=== PATIENT | female | born 1995 | race African-American/Black ===

== ENCOUNTER 2019-06-09 10:25 | Observation (INO) | payer MEDICAID ==
[~2019-06-09] VITALS: Ht 154.9 cm; Wt 73.9 kg
[~2019-06-09 10:25] MED LIST: PRE NATAL
[2019-06-09] MEDS ORDERED: BETAMETHASONE ACET (6MG/ML) 5ML VIAL IM ONE (11:45)
[2019-06-10] MEDS ORDERED: NIF10C GT (14:06)
== END 2019-06-09 12:50 | disposition home or self-care (01) | DRG 861 ==
LOC: LDRP 10:25
PROVIDERS: ADMIT Specialist; ATTEND Specialist
DX: Z34.93 Encounter for supervision of normal pregnancy, unspecified, third trimester (principal); Z3A.30 30 weeks gestation of pregnancy
CPT/HCPCS: 59025; 81002; 96372; G0378; J0702

== ENCOUNTER 2019-06-10 13:00 | Observation (INO) | payer MEDICAID ==
[~2019-06-10] VITALS: Ht 154.9 cm; Wt 68.0 kg
[2019-06-10] MEDS ORDERED: BETAMETHASONE ACET (6MG/ML) 5ML VIAL IM ONE (13:45)
[2019-06-10] MEDS ORDERED: NIF10C GT (14:06)
== END 2019-06-10 14:25 | disposition home or self-care (01) | DRG 563 ==
LOC: LDRP 13:00
PROVIDERS: ADMIT Obstetrics & Gynecology; ATTEND Obstetrics & Gynecology
DX: O60.03 Preterm labor without delivery, third trimester (principal); Z3A.30 30 weeks gestation of pregnancy
CPT/HCPCS: 96372; G0378; J0702

== ENCOUNTER 2019-06-17 11:20 | Outpatient (CLI) | payer MEDICAID ==
[~2019-06-17 11:20] MED LIST changes: +NIF10C GT
== END 2019-06-17 12:15 | disposition home or self-care (01) ==
LOC: OB 11:20
PROVIDERS: ATTEND Specialist
DX: Z34.93 Encounter for supervision of normal pregnancy, unspecified, third trimester (principal); Z3A.31 31 weeks gestation of pregnancy
CPT/HCPCS: 59025; 81002

== ENCOUNTER 2019-06-21 11:43 | Observation (INO) | payer MEDICAID | END 2019-06-21 12:40 | disposition home or self-care (01) | DRG 563 | LOC: LDRP 11:43 | PROVIDERS: ADMIT Specialist; ATTEND Specialist | DX: O60.03 Preterm labor without delivery, third trimester (principal); Z3A.32 32 weeks gestation of pregnancy | CPT/HCPCS: 59025; 81002; G0378 ==

== ENCOUNTER 2019-06-28 12:15 | Observation (INO) | payer MEDICAID | END 2019-06-28 12:55 | disposition home or self-care (01) | DRG 563 | LOC: LDRP 12:15 | PROVIDERS: ADMIT Specialist; ATTEND Specialist | DX: O60.03 Preterm labor without delivery, third trimester (principal); Z3A.33 33 weeks gestation of pregnancy | CPT/HCPCS: 59025; 81002; G0378 ==

== ENCOUNTER 2019-07-03 20:55 | Observation (INO) | payer MEDICAID ==
[~2019-07-03] VITALS: Ht 152.4 cm; Wt 75.3 kg
[2019-07-03] MEDS ORDERED: TERBUTALINE SULFATE 1 MG/ML 1ML VIAL SC SCH (21:15)
[2019-07-03] MEDS ORDERED: ACETAMINOPHEN 325 MG TAB PO ONE (21:30)
== END 2019-07-03 23:15 | disposition home or self-care (01) | DRG 566 ==
LOC: LDRP 20:55
PROVIDERS: ADMIT Obstetrics & Gynecology; ATTEND Obstetrics & Gynecology
DX: O26.893 Other specified pregnancy related conditions, third trimester (principal); M54.9 Dorsalgia, unspecified; R10.2 Pelvic and perineal pain; O99.89 Other specified diseases and conditions complicating pregnancy, childbirth and the puerperium; Z3A.34 34 weeks gestation of pregnancy
CPT/HCPCS: 59025; 81002; 96372; G0378; J3105

== ENCOUNTER 2019-07-05 12:20 | Observation (INO) | payer MEDICAID | END 2019-07-05 13:27 | disposition home or self-care (01) | DRG 563 | LOC: LDRP 12:20 | PROVIDERS: ADMIT Specialist; ATTEND Specialist | DX: O60.03 Preterm labor without delivery, third trimester (principal); Z3A.34 34 weeks gestation of pregnancy | CPT/HCPCS: 59025; 81002; G0378 ==

== ENCOUNTER 2019-07-12 12:23 | Observation (INO) | payer MEDICAID | END 2019-07-12 14:40 | disposition home or self-care (01) | DRG 563 | LOC: LDRP 12:23 | PROVIDERS: ADMIT Specialist; ATTEND Specialist | DX: O60.03 Preterm labor without delivery, third trimester (principal); Z3A.35 35 weeks gestation of pregnancy | CPT/HCPCS: 59025; 81002; 84112; G0378 ==

== ENCOUNTER 2019-07-20 01:20 | Observation (INO) | payer MEDICAID ==
[~2019-07-20] VITALS: Ht 152.4 cm; Wt 75.7 kg
[2019-07-20] MEDS ORDERED: TERBUTALINE SULFATE 1 MG/ML 1ML VIAL SC ONE (02:15)
[2019-08-05] MEDS ORDERED: PREN27TA7 OR (17:03)
== END 2019-07-20 02:44 | disposition left against medical advice (07) | DRG 566 ==
LOC: LDRP 01:20
PROVIDERS: ADMIT Obstetrics & Gynecology; ATTEND Obstetrics & Gynecology
DX: O62.9 Abnormality of forces of labor, unspecified (principal); Z3A.36 36 weeks gestation of pregnancy
CPT/HCPCS: 59025; 81002; G0378

== ENCOUNTER 2019-07-21 09:43 | Observation (INO) | payer MEDICAID ==
[~2019-07-21] VITALS: Ht 152.4 cm; Wt 78.0 kg
[2019-07-21 10:41] LABS: Basophils # (auto) 0 uL; Basophils % (auto) 0.4 % (0.0-2.0); Eosinophils # (auto) 0 uL; Eosinophils % (auto) 0.3 % (0.0-7.0); Hematocrit 31.8 % (36.0-46.0); Hemoglobin 10.5 g/dL (12.2-16.2); Lymphocytes # (auto) 1.3 uL; Lymphocytes % (auto) 17.9 % (10.0-50.0); Mean Corpuscular Hemoglobin 27.9 pg (28.0-32.0); Mean Corpuscular Hgb Conc. 33.2 g/dL (32.0-36.0); Mean Corpuscular Volume 83.9 fL (80.0-100.0); Monocytes # (auto) 0.9 uL; Monocytes % (auto) 11.7 % (0.0-12.0); Neutrophils # (auto) 5.2 uL; Neutrophils % (auto) 69.7 % (37.0-80.0); Nucleated Red Blood Cells % 0.1 %; Platelet Count (auto) 162 10^3/uL (140-450); Red Blood Cells 3.78 10^6/uL (4.0-5.20); Red Cell Distribution Width 13.7 % (11.8-14.3); White Blood Cell 7.5 10^3/uL (4.4-10.8)
[2019-07-21 10:57] LABS: Albumin 2.1 g/dL (3.4-5.0); Calcium 7.6 mg/dL (8.5-10.1); INR 0.93 (0.9-1.15); Partial Thromboplastin Time 25.2 sec (23.64-32.05); Potassium 3.3 mmol/L (3.5-5.1)
[2019-07-21 11:01] LABS: Bilirubin, Total 0.2 mg/dL (0.2-1.0); Total Protein 5.8 g/dL (6.4-8.2)
[2019-07-21 11:48] LABS: Urine Bacteria NONE SEEN /hpf (None Seen); Urine Blood Negative /uL (Negative); Urine Mucus FEW (None Seen); Urine Specific Gravity 1.026 (1.001-1.035); Urine WBC 2 /hpf (0 - 5)
== END 2019-07-21 11:50 | disposition home or self-care (01) | DRG 566 ==
LOC: LDRP 09:43
PROVIDERS: ADMIT Specialist; ATTEND Specialist
DX: O13.3 Gestational [pregnancy-induced] hypertension without significant proteinuria, third trimester (principal); Z3A.36 36 weeks gestation of pregnancy
CPT/HCPCS: 36415; 59025; 80053; 81001; 81002; 84550; 85025; 85610; 85730; 86592; G0378

== ENCOUNTER 2019-07-23 09:25 | Observation (INO) | payer MEDICAID ==
[2019-07-23 10:01] LABS: Protein, Urine 20.5 mg/dL (0.0-11.9)
[2019-07-23 10:21] LABS: 24 Hr. Total Protein, Urine 112.7 mg/24 Hr (<149.1)
[2019-08-05] MEDS ORDERED: PREN27TA7 OR (17:03)
== END 2019-07-23 11:00 | disposition home or self-care (01) | DRG 566 ==
LOC: LDRP 09:25
PROVIDERS: ADMIT Obstetrics & Gynecology; ATTEND Obstetrics & Gynecology
DX: O99.89 Other specified diseases and conditions complicating pregnancy, childbirth and the puerperium (principal); R34 Anuria and oliguria; Z87.09 Personal history of other diseases of the respiratory system; Z3A.37 37 weeks gestation of pregnancy
CPT/HCPCS: 59025; 81002; 84156; G0378

== ENCOUNTER 2019-07-28 08:58 | Observation (INO) | payer MEDICAID ==
[2019-08-05] MEDS ORDERED: PREN27TA7 OR (17:03)
== END 2019-07-28 12:05 | disposition home or self-care (01) | DRG 566 ==
LOC: LDRP 08:58
PROVIDERS: ADMIT Obstetrics & Gynecology; ATTEND Obstetrics & Gynecology
DX: O13.3 Gestational [pregnancy-induced] hypertension without significant proteinuria, third trimester (principal); Z3A.37 37 weeks gestation of pregnancy
CPT/HCPCS: 59025; 76818; 81002; G0378

== ENCOUNTER 2019-08-04 09:45 | Observation (INO) | payer MEDICAID ==
[~2019-08-04 09:45] MED LIST changes: -NIF10C GT
[2019-08-04 13:24] LABS: Basophils # (auto) 0 uL; Basophils % (auto) 0.4 % (0.0-2.0); Eosinophils # (auto) 0 uL; Eosinophils % (auto) 0.3 % (0.0-7.0); Hematocrit 33.7 % (36.0-46.0); Hemoglobin 11.4 g/dL (12.2-16.2); Lymphocytes # (auto) 1.6 uL; Lymphocytes % (auto) 16.4 % (10.0-50.0); Mean Corpuscular Hemoglobin 28.2 pg (28.0-32.0); Mean Corpuscular Hgb Conc. 33.8 g/dL (32.0-36.0); Mean Corpuscular Volume 83.5 fL (80.0-100.0); Monocytes # (auto) 1.2 uL; Monocytes % (auto) 11.8 % (0.0-12.0); Neutrophils % (auto) 71.1 % (37.0-80.0); Nucleated Red Blood Cells % 0.1 %; Platelet Count (auto) 201 10^3/uL (140-450); Red Blood Cells 4.04 10^6/uL (4.0-5.20); Red Cell Distribution Width 13.9 % (11.8-14.3); White Blood Cell 9.9 10^3/uL (4.4-10.8)
[2019-08-04 13:31] LABS: INR 0.9 (0.9-1.15); Partial Thromboplastin Time 21.1 sec (23.64-32.05)
[2019-08-04 13:34] LABS: Albumin 2.4 g/dL (3.4-5.0); Calcium 8.1 mg/dL (8.5-10.1)
[2019-08-04 13:37] LABS: BUN/Creatinine Ratio 11.3; Bilirubin, Total 0.2 mg/dL (0.2-1.0); Total Protein 6.4 g/dL (6.4-8.2); Uric Acid 2.8 mg/dL (2.6-6.0)
[2019-08-04 13:45] LABS: Urine Bacteria NONE SEEN /hpf (None Seen); Urine Blood 2+ /uL (Negative); Urine Mucus FEW (None Seen); Urine Specific Gravity 1.016 (1.001-1.035); Urine WBC 2 /hpf (0 - 5)
[2019-08-04 13:54] LABS: Alcohol, Urine < 3.0 mg/dL (0-5); Amphetamine Screen, Urine NEGATIVE (NEGATIVE); Barbiturate Scree,Urine NEGATIVE (NEGATIVE); Benzodiazephine Screen, Urine NEGATIVE (NEGATIVE); Cannabinoid Screen, Urine NEGATIVE (NEGATIVE); Cocaine Screen, Urine NEGATIVE (NEGATIVE); Opiate Scree,Urine NEGATIVE (NEGATIVE); Phencyclidine Screen, Urine NEGATIVE (NEGATIVE)
[2019-08-05] MEDS ORDERED: PREN27TA7 OR (17:03)
[2019-08-07 07:06] LABS: RPR Non Reactive (Non Reactive)
== END 2019-08-04 16:15 | disposition home or self-care (01) | DRG 566 ==
LOC: LDRP 09:45
PROVIDERS: ADMIT Obstetrics & Gynecology; ATTEND Obstetrics & Gynecology
DX: O13.3 Gestational [pregnancy-induced] hypertension without significant proteinuria, third trimester (principal); Z3A.38 38 weeks gestation of pregnancy
CPT/HCPCS: 36415; 59025; 76818; 80053; 80307; 81001; 81002; 84112; 84550; 85025; 85610; 85730; 86592; 86850; 86900; 86901; G0378

== ENCOUNTER 2021-01-18 11:18 | Observation (INO) | payer MEDICAID ==
[~2021-01-18 11:18] MED LIST changes: -PRE NATAL; +PREN27TA7 OR
== END 2021-01-18 12:25 | disposition home or self-care (01) ==
LOC: LDRP 11:18
PROVIDERS: ADMIT Specialist; ATTEND Specialist
DX: O42.912 Preterm premature rupture of membranes, unspecified as to length of time between rupture and onset of labor, second trimester (principal); O26.893 Other specified pregnancy related conditions, third trimester; N89.8 Other specified noninflammatory disorders of vagina; Z3A.29 29 weeks gestation of pregnancy
CPT/HCPCS: 59025; 81002; 84112; G0378; Q0114

== ENCOUNTER 2021-02-02 21:21 | Observation (INO) | payer MEDICAID ==
[~2021-02-02] VITALS: Ht 154.9 cm; Wt 80.7 kg
[2021-02-02 22:43] LABS: Urine Bacteria FEW /hpf (None Seen); Urine Blood Negative /uL (Negative); Urine Mucus FEW (None Seen); Urine Specific Gravity 1.022 (1.001-1.035); Urine WBC 4 /hpf (0 - 5)
[2021-02-02 22:52] LABS: Alcohol, Urine < 3.0 mg/dL (0-10); Barbiturate Scree,Urine NEGATIVE (NEGATIVE); Benzodiazephine Screen, Urine NEGATIVE (NEGATIVE); Cannabinoid Screen, Urine NEGATIVE (NEGATIVE); Cocaine Screen, Urine NEGATIVE (NEGATIVE); Opiate Scree,Urine NEGATIVE (NEGATIVE); Phencyclidine Screen, Urine NEGATIVE (NEGATIVE)
[2021-02-02 22:58] LABS: Amphetamine Screen, Urine NEGATIVE (NEGATIVE)
== END 2021-02-03 00:25 | disposition home or self-care (01) ==
LOC: LDRP 21:21
PROVIDERS: ADMIT Obstetrics & Gynecology; ATTEND Obstetrics & Gynecology
DX: O60.03 Preterm labor without delivery, third trimester (principal); O26.853 Spotting complicating pregnancy, third trimester; Z3A.31 31 weeks gestation of pregnancy
CPT/HCPCS: 59025; 76818; 80307; 81001; 81002; G0378

== ENCOUNTER 2021-03-04 20:47 | Observation (INO) | payer MEDICAID | END 2021-03-04 22:40 | disposition home or self-care (01) | LOC: LDRP 20:47 | PROVIDERS: ADMIT Specialist; ATTEND Specialist | DX: O26.893 Other specified pregnancy related conditions, third trimester (principal); R10.9 Unspecified abdominal pain; R11.0 Nausea; R42 Dizziness and giddiness; O99.891 Other specified diseases and conditions complicating pregnancy; M54.5 Low back pain; Z3A.36 36 weeks gestation of pregnancy | CPT/HCPCS: 59025; 81002; G0378 ==

== ENCOUNTER 2021-03-21 20:55 | Inpatient (IN) | payer MEDICAID ==
[~2021-03-21] VITALS: Ht 30.5 cm; Wt 0.5 kg
[2021-03-21 23:18] LABS: Basophils # (auto) 0 10 ^3/uL (0-0.2); Hemoglobin 9.7 g/dL (12.2-16.2)
[2021-03-21 23:21] LABS: Basophils % (auto) 0.4 % (0.0-2.0); Eosinophils # (auto) 0.1 10 ^3/uL (0-0.8); Eosinophils % (auto) 0.7 % (0.0-7.0); Hematocrit 29.4 % (36.0-46.0); Lymphocytes # (auto) 1.4 10 ^3/uL (0.4-5.4); Mean Corpuscular Hemoglobin 26.4 pg (28.0-32.0); Mean Corpuscular Hgb Conc. 33.1 g/dL (32.0-36.0); Mean Corpuscular Volume 79.6 fL (80.0-100.0); Monocytes # (auto) 0.9 10 ^3/uL (0-1.3); Monocytes % (auto) 11.9 % (0.0-12.0); Neutrophils # (auto) 5.4 10 ^3/uL (1.6-8.6); Red Blood Cells 3.69 10^6/uL (4.0-5.20); Red Cell Distribution Width 14.9 % (11.8-14.3); White Blood Cell 7.8 10^3/uL (4.4-10.8)
[2021-03-21 23:23] LABS: Urine Bacteria FEW /hpf (None Seen); Urine Blood Negative /uL (Negative); Urine WBC 1 /hpf (0 - 5)
[2021-03-21 23:34] LABS: INR 0.93 (0.9-1.15); Partial Thromboplastin Time 24.7 sec (23.6-33.0)
[2021-03-21 23:37] LABS: Alcohol, Urine < 3.0 mg/dL (0-10); Amphetamine Screen, Urine NEGATIVE (NEGATIVE); Barbiturate Scree,Urine NEGATIVE (NEGATIVE); Benzodiazephine Screen, Urine NEGATIVE (NEGATIVE); Cannabinoid Screen, Urine NEGATIVE (NEGATIVE); Cocaine Screen, Urine NEGATIVE (NEGATIVE); Opiate Scree,Urine NEGATIVE (NEGATIVE); Phencyclidine Screen, Urine NEGATIVE (NEGATIVE)
[2021-03-21 23:38] LABS: Potassium 3.7 mmol/L (3.5-5.1); Uric Acid 3.4 mg/dL (2.6-6.0)
[2021-03-21 23:39] LABS: Protein, Urine 17.1 mg/dL (0.0-11.9)
[2021-03-21 23:41] LABS: BUN/Creatinine Ratio 17.2; Bilirubin, Total 0.1 mg/dL (0.2-1.0)
[2021-03-22] MEDS ORDERED: LIDOCAINE 2%HCL (LOCAL ANESTH.) INJ 20ML MDV IJ PRN (00:30)
[2021-03-22] MEDS ORDERED: miSOPROStol 50 MCG per PRE-CUT 1/2 TAB PO PRN (00:30)
[2021-03-22] MEDS ORDERED: PENICILLIN G POT 5MIL/D5 50ML 50 ML IV ONE ×2 (00:30→02:45)
[2021-03-22] MEDS ORDERED: PROMETHAZINE HCL 25 MG/ML 1ML IV PRN (00:30)
[2021-03-22] MEDS ORDERED: BUTORPHANOL TARTRATE 2 MG/1 ML VIAL IV PRN ×2 (00:30)
[2021-03-22] MEDS ORDERED: PHISODERM TOP SOLN 240ML BTL TOP PRN (00:30)
[2021-03-22] MEDS ORDERED: LACT. RINGERS/OXYTOCIN 20UNITS 500 ML IV ONE ×2 (01:15→01:45)
[2021-03-22] MEDS ORDERED: TERBUTALINE SULFATE 1 MG/ML 1ML VIAL SC ONE (01:15)
[2021-03-22] MEDS ORDERED: LACT. RINGERS/OXYTOCIN 20UNITS 1,000 ML IV SCH (01:15)
[2021-03-22] MEDS ORDERED: CLINDAMYCIN 900MG IV 50 ML IV SCH (01:15)
[2021-03-22] MEDS: LACTATED RINGER'S 1,000 ML IV SCH ×3 (02:41→12:10)
[2021-03-22] MEDS ORDERED: PENICILLIN G POTASSIUM 2,500,000 UNITS in D5W 5% 50 ML IV SCH (04:30)
[2021-03-22] MEDS: PENICILLIN G POTASSIUM 2,500,000 UNITS in D5W 5% 50 ML IV SCH ×2 (07:20→12:22)
[2021-03-22] MEDS ORDERED: LIDOCAINE HCL 2 %PF INJ 10ML AMP IJ ONE (08:00)
[2021-03-22] MEDS ORDERED: ePHEDrine SULFATE 50 MG/ML AMP IV ONE (08:00)
[2021-03-22] MEDS ORDERED: NALOXONE HCL 0.4 MG/ML VIAL IV ONE (08:00)
[2021-03-22] MEDS ORDERED: ROPIVACAINE HCL 200 ML EPI SCH (08:00)
[2021-03-22] MEDS ORDERED: fentaNYL CITRATE 100 MCG/2 ML VL IV ONE (08:00)
[2021-03-22] MEDS ORDERED: METHYLERGONOVINE MALEATE 0.2 MG/ML AMP IM ONE ×2 (14:27→14:30)
[2021-03-22] MEDS: DERMOPLAST 60ML BOTTLE TOP PRN (15:46)
[2021-03-22] MEDS: WITCH HAZEL-GLYCERIN PAD TOP PRN (15:46)
[2021-03-22] MEDS ORDERED: ACETAMINOPHEN 325 MG TAB PO PRN (16:15)
[2021-03-22] MEDS: IBUPROFEN 600 MG TAB PO PRN (20:35)
[2021-03-23] MEDS: IBUPROFEN 600 MG TAB PO PRN ×3 (00:21→12:00)
[2021-03-23 03:00] VITALS: BP 119/56
[2021-03-23 05:07] LABS: Rubella Antibodies, IgG <0.90 index (Immune >0.99)
[2021-03-23 07:07] LABS: RPR Non Reactive (Non Reactive)
[2021-03-23] MEDS: DERMOPLAST 60ML BOTTLE TOP PRN (12:02)
[2021-03-23] MEDS: WITCH HAZEL-GLYCERIN PAD TOP PRN (12:02)
== END 2021-03-23 15:40 | disposition home or self-care (01) | DRG 560 ==
LOC: LDRP 20:55 → OBSVTOIN 03-22 00:15 → LDRP 03-22 00:16
PROVIDERS: ADMIT Obstetrics & Gynecology; ATTEND Obstetrics & Gynecology
PROC: 10E0XZZ Delivery of Products of Conception, External Approach (ICD-10-PCS; principal; 2021-03-22)
PROC: 3E033VJ Introduction of Other Hormone into Peripheral Vein, Percutaneous Approach (ICD-10-PCS; 2021-03-22)
PROC: 3E0R3BZ Introduction of Anesthetic Agent into Spinal Canal, Percutaneous Approach (ICD-10-PCS; 2021-03-22)
PROC: 00HU33Z Insertion of Infusion Device into Spinal Canal, Percutaneous Approach (ICD-10-PCS; 2021-03-22)
PROC: 0UQMXZZ Repair Vulva, External Approach (ICD-10-PCS; 2021-03-22)
DX: O41.03X0 Oligohydramnios, third trimester, not applicable or unspecified (principal); J45.909 Unspecified asthma, uncomplicated; Z20.822 Contact with and (suspected) exposure to COVID-19; O71.82 Other specified trauma to perineum and vulva; O99.52 Diseases of the respiratory system complicating childbirth; Z3A.38 38 weeks gestation of pregnancy; Z37.0 Single live birth; Z88.5 Allergy status to narcotic agent
CPT/HCPCS: 36415; 59025; 59409; 62282; 76805; 80053; 80307; 81001; 81002; 82570; 84156; 84550; 85025; 85384; 85610; 85730; 86592; 86703; 86762; 86850; 86900; 86901; 87340; 87426; 94760; 96361; 96365; 96366; 96372; 96374; G0378; J2540; J2590; J7060

== ENCOUNTER 2022-01-29 15:45 | Observation (INO) | payer MEDICAID | END 2022-01-29 17:00 | disposition home or self-care (01) | LOC: UNDOADMOB 15:45 → LDRP 15:45 | PROVIDERS: ADMIT Obstetrics & Gynecology; ATTEND Obstetrics & Gynecology | DX: O26.893 Other specified pregnancy related conditions, third trimester (principal); R51.9 Headache, unspecified; O99.891 Other specified diseases and conditions complicating pregnancy; M79.601 Pain in right arm; Z3A.36 36 weeks gestation of pregnancy | CPT/HCPCS: 59025; 81002; 94760; G0378 ==

== ENCOUNTER 2022-02-04 17:45 | Inpatient (IN) | payer MEDICAID ==
[~2022-02-04] VITALS: Ht 154.9 cm; Wt 93.4 kg
[2022-02-04 20:27] LABS: Urine Bacteria NONE SEEN /hpf (None Seen); Urine Blood Negative /uL (Negative); Urine Specific Gravity 1.007 (1.001-1.035); Urine WBC <1 /hpf (0 - 5)
[2022-02-04 20:31] LABS: Basophils # (auto) 0 10 ^3/uL (0-0.2); Eosinophils # (auto) 0 10 ^3/uL (0-0.8); Lymphocytes # (auto) 1.2 10 ^3/uL (0.4-5.4); Mean Corpuscular Hemoglobin 24.4 pg (28.0-32.0); Monocytes # (auto) 0.8 10 ^3/uL (0-1.3)
[2022-02-04 20:32] LABS: Basophils % (auto) 0.2 % (0.0-2.0); Eosinophils % (auto) 0.5 % (0.0-7.0); Hematocrit 26.3 % (36.0-46.0); Hemoglobin 8.5 g/dL (12.2-16.2); Lymphocytes % (auto) 19.6 % (10.0-50.0); Mean Corpuscular Hgb Conc. 32.5 g/dL (32.0-36.0); Mean Corpuscular Volume 75.3 fL (80.0-100.0); Monocytes % (auto) 12.6 % (0.0-12.0); Neutrophils # (auto) 4.3 10 ^3/uL (1.6-8.6); Neutrophils % (auto) 67.1 % (37.0-80.0); Nucleated Red Blood Cells % 0.2 %; Red Blood Cells 3.49 10^6/uL (4.0-5.20); Red Cell Distribution Width 16.1 % (11.8-14.3); White Blood Cell 6.3 10^3/uL (4.4-10.8)
[2022-02-04 20:42] LABS: Alcohol, Urine < 3.0 mg/dL (0-10); Amphetamine Screen, Urine NEGATIVE (NEGATIVE); Barbiturate Scree,Urine NEGATIVE (NEGATIVE); Benzodiazephine Screen, Urine NEGATIVE (NEGATIVE); Cannabinoid Screen, Urine NEGATIVE (NEGATIVE); Cocaine Screen, Urine NEGATIVE (NEGATIVE); Opiate Scree,Urine NEGATIVE (NEGATIVE); Phencyclidine Screen, Urine NEGATIVE (NEGATIVE); Protein, Urine 9.8 mg/dL (0.0-11.9)
[2022-02-04 20:44] LABS: Creatinine, Urine 43 mg/dL (30.0-125.0)
[2022-02-04 20:48] LABS: Albumin 2.3 g/dL (3.4-5.0); Potassium 3.6 mmol/L (3.5-5.1)
[2022-02-04 20:51] LABS: BUN/Creatinine Ratio 10.2; Bilirubin, Total 0.2 mg/dL (0.2-1.0); Uric Acid 3.4 mg/dL (2.6-6.0)
[2022-02-04 21:10] LABS: INR 1.42 (0.9-1.15); Partial Thromboplastin Time 25.2 sec (23.6-33.0)
[2022-02-04] MEDS ORDERED: BUTORPHANOL TARTRATE 2 MG/1 ML VIAL IV PRN ×2 (21:30)
[2022-02-04] MEDS ORDERED: WITCH HAZEL-GLYCERIN PAD TOP PRN (21:30)
[2022-02-04] MEDS ORDERED: DERMOPLAST 60ML BOTTLE TOP PRN (21:30)
[2022-02-04] MEDS ORDERED: PROMETHAZINE HCL 25 MG/ML 1ML IV PRN (21:30)
[2022-02-04] MEDS ORDERED: PHISODERM TOP SOLN 240ML BTL TOP PRN (21:30)
[2022-02-04] MEDS ORDERED: miSOPROStol 50 MCG per PRE-CUT 1/2 TAB PO PRN (21:30)
[2022-02-04] MEDS ORDERED: PENICILLIN G POT 5MIL/D5 50ML 50 ML IV ONE (21:30)
[2022-02-04] MEDS ORDERED: LIDOCAINE 2%HCL (LOCAL ANESTH.) INJ 10ml MDV IJ PRN (21:30)
[2022-02-04] MEDS: LACTATED RINGER'S 1,000 ML IV SCH (22:10)
[2022-02-04] MEDS ORDERED: LACT. RINGERS/OXYTOCIN 20UNITS 500 ML IV ONE ×2 (22:15→22:45)
[2022-02-05] VITALS (20 sets, daily range): BP systolic 69–141; BP diastolic 34–80
[2022-02-05 00:14] LABS: INR 0.93 (0.9-1.15); Partial Thromboplastin Time 26.2 sec (23.6-33.0)
[2022-02-05] MEDS ORDERED: METHYLERGONOVINE MALEATE 0.2 MG/ML AMP IM ONE (01:45)
[2022-02-05] MEDS ORDERED: CARBOPROST TROMETHAMINE 250 MCG/1ML VIAL IM PRN (01:45)
[2022-02-05] MEDS ORDERED: miSOPROStol 100 mcg TAB SL PRN (01:45)
[2022-02-05] MEDS: PENICILLIN G POTASSIUM 2,500,000 UNITS in D5W 5% 50 ML IV SCH ×2 (02:15→06:14)
[2022-02-05] MEDS ORDERED: LACT. RINGERS/OXYTOCIN 20UNITS 1,000 ML IV SCH (02:30)
[2022-02-05] MEDS: LACTATED RINGER'S 1,000 ML IV SCH ×3 (06:13→17:40)
[2022-02-05] MEDS ORDERED: CARBOPROST TROMETHAMINE 250 MCG/1ML VIAL IM ONE ×2 (07:56→08:54)
[2022-02-05] MEDS ORDERED: fentaNYL CITRATE 100 MCG/2 ML VL ONE ×2 (08:46→09:14)
[2022-02-05] MEDS ORDERED: MEPERIDINE HCL (50 MG/ML) 1 ML VIAL ONE (08:47)
[2022-02-05] MEDS ORDERED: MIDAZOLAM HCL 2MG/2ML 2ml VIAL (1mg/ml) ONE (08:47)
[2022-02-05] MEDS ORDERED: DexAMETHasone SOD PHOS 10MG/1ML VIAL INJ ONE (09:01)
[2022-02-05] MEDS ORDERED: ETOMIDATE (2MG/ML) 20ML VIAL IV ONE (09:01)
[2022-02-05] MEDS ORDERED: metroNIDAZOLE 500MG/100ML 100 ML IV ONE (09:04)
[2022-02-05] MEDS ORDERED: ROCURONIUM 10MG/ML 10ML VIAL IV ONE (09:04)
[2022-02-05] MEDS ORDERED: HYDROmorphone HCL 2 MG/ML VL/or syr IV PRN (10:45)
[2022-02-05] MEDS ORDERED: ePHEDrine SULFATE 50 MG/ML AMP IV PRN (10:45)
[2022-02-05] MEDS ORDERED: MIDAZOLAM HCL 2MG/2ML 2ml VIAL (1mg/ml) IV PRN (10:45)
[2022-02-05] MEDS ORDERED: ONDANSETRON HCL 4 MG/2 ML VIAL IV PRN ×2 (10:45→11:00)
[2022-02-05] MEDS ORDERED: LABETALOL HCL 5 MG/ML 4ML SYRINGE IV PRN (10:45)
[2022-02-05] MEDS ORDERED: MORPHINE SULFATE INJ 2 MG/ml SYRG IV PRN (11:00)
[2022-02-05 11:37] LABS: Eosinophils # (auto) 0 10 ^3/uL (0-0.8); Neutrophils # (auto) 16.4 10 ^3/uL (1.6-8.6)
[2022-02-05 11:40] LABS: Basophils # (auto) 0.1 10 ^3/uL (0-0.2); Basophils % (auto) 0.3 % (0.0-2.0); Hematocrit 35.1 % (36.0-46.0); Hemoglobin 11.1 g/dL (12.2-16.2); Lymphocytes % (auto) 5.3 % (10.0-50.0); Mean Corpuscular Hemoglobin 25.3 pg (28.0-32.0); Mean Corpuscular Hgb Conc. 31.8 g/dL (32.0-36.0); Mean Corpuscular Volume 79.6 fL (80.0-100.0); Monocytes % (auto) 5.4 % (0.0-12.0); Red Blood Cells 4.41 10^6/uL (4.0-5.20); Red Cell Distribution Width 16.3 % (11.8-14.3); White Blood Cell 18.5 10^3/uL (4.4-10.8)
[2022-02-05 11:41] LABS: INR 0.96 (0.9-1.15)
[2022-02-05] MEDS: ceFAZolin 1GM/50ML 50 ML IV SCH ×2 (14:01→22:21)
[2022-02-05] MEDS: metroNIDAZOLE 500MG/100ML 100 ML IV SCH ×2 (16:08→22:20)
[2022-02-05] MEDS: HYDROmorphone HCL 2 MG/ML VL/or syr IV PRN ×3 (16:49→21:59)
[2022-02-05] MEDS: SIMETHICONE 80 MG CHEWABLE TABLET PO SCH ×2 (18:02→23:34)
[2022-02-05] MEDS ORDERED: BISACODYL 10 MG RECT SUPP PR PRN (20:00)
[2022-02-05] MEDS: MORPHINE SULFATE INJ 2 MG/ml SYRG IV PRN ×2 (20:12→23:37)
[2022-02-05] MEDS ORDERED: SIMETHICONE 80 MG CHEWABLE TABLET ONE (22:29)
[2022-02-06] VITALS (25 sets, daily range): BP systolic 116–142; BP diastolic 55–89
[2022-02-06] MEDS: LACTATED RINGER'S 1,000 ML IV SCH ×4 (00:15→15:49)
[2022-02-06 04:28] LABS: INR 0.97 (0.9-1.15)
[2022-02-06] MEDS ORDERED: HYDROcodone-ACET 5/325MG TAB PO PRN (05:30)
[2022-02-06 06:06] LABS: Rubella Antibodies, IgG 1.01 index (Immune >0.99)
[2022-02-06] MEDS: ceFAZolin 1GM/50ML 50 ML IV SCH ×3 (06:21→22:41)
[2022-02-06] MEDS: metroNIDAZOLE 500MG/100ML 100 ML IV SCH ×2 (06:21→15:49)
[2022-02-06] MEDS: SIMETHICONE 80 MG CHEWABLE TABLET PO SCH ×5 (06:21→22:41)
[2022-02-06 07:06] LABS: RPR Non Reactive (Non Reactive)
[2022-02-06] MEDS: MORPHINE SULFATE INJ 2 MG/ml SYRG IV PRN (07:28)
[2022-02-06 08:29] LABS: Basophils # (auto) 0 10 ^3/uL (0-0.2); Basophils % (auto) 0.1 % (0.0-2.0); Eosinophils # (auto) 0 10 ^3/uL (0-0.8); Hematocrit 20.7 % (36.0-46.0); Lymphocytes # (auto) 1.1 10 ^3/uL (0.4-5.4); Lymphocytes % (auto) 9.9 % (10.0-50.0); Mean Corpuscular Hemoglobin 26.2 pg (28.0-32.0); Mean Corpuscular Hgb Conc. 33.3 g/dL (32.0-36.0); Mean Corpuscular Volume 78.6 fL (80.0-100.0); Monocytes # (auto) 1.3 10 ^3/uL (0-1.3); Monocytes % (auto) 12.3 % (0.0-12.0); Neutrophils # (auto) 8.3 10 ^3/uL (1.6-8.6); Neutrophils % (auto) 77.7 % (37.0-80.0); Nucleated Red Blood Cells % 0.2 %; Red Blood Cells 2.64 10^6/uL (4.0-5.20); White Blood Cell 10.6 10^3/uL (4.4-10.8)
[2022-02-06 08:44] LABS: Hemoglobin 6.9 g/dL (12.2-16.2)
[2022-02-06] MEDS: HYDROcodone-ACET 5/325MG TAB PO PRN ×3 (09:35→19:11)
[2022-02-06] MEDS ORDERED: DOCUSATE SOD 100 MG CAP PO SCH (10:00)
[2022-02-06] MEDS: DOCUSATE CALCIUM 240 MG CAP PO SCH (10:00)
[2022-02-06] MEDS ORDERED: IBUP800T27 PO (14:43)
[2022-02-06] MEDS ORDERED: HYDR-4902 PO (14:43)
[2022-02-06] MEDS ORDERED: CEPH500T PO (14:43)
[2022-02-06] MEDS ORDERED: DOCU-94 PO (14:43)
[2022-02-06] MEDS ORDERED: FER325T PO (14:43)
[2022-02-06] MEDS: IBUPROFEN 800 MG TAB PO PRN (17:30)
[2022-02-06 21:04] LABS: Basophils # (auto) 0 10 ^3/uL (0-0.2); Basophils % (auto) 0.4 % (0.0-2.0); Eosinophils # (auto) 0 10 ^3/uL (0-0.8); Lymphocytes # (auto) 0.9 10 ^3/uL (0.4-5.4); Monocytes # (auto) 1.1 10 ^3/uL (0-1.3); Red Cell Distribution Width 16.2 % (11.8-14.3)
[2022-02-06 21:06] LABS: Eosinophils % (auto) 0.2 % (0.0-7.0); Hematocrit 22.8 % (36.0-46.0); Hemoglobin 7.5 g/dL (12.2-16.2); Lymphocytes % (auto) 9.4 % (10.0-50.0); Mean Corpuscular Hemoglobin 25.9 pg (28.0-32.0); Mean Corpuscular Volume 78.7 fL (80.0-100.0); Monocytes % (auto) 11.8 % (0.0-12.0); Neutrophils # (auto) 7.5 10 ^3/uL (1.6-8.6); Neutrophils % (auto) 78.2 % (37.0-80.0); Nucleated Red Blood Cells % 0.1 %; White Blood Cell 9.6 10^3/uL (4.4-10.8)
[2022-02-06] MEDS: FERROUS SULFATE 325mg EC TAB PO SCH (22:40)
[2022-02-07] VITALS (23 sets, daily range): BP systolic 114–144; BP diastolic 55–86
[2022-02-07] MEDS ORDERED: LACTATED RINGER'S 1,000 ML IV SCH
[2022-02-07] MEDS: metroNIDAZOLE 500MG/100ML 100 ML IV SCH ×3 (00:28→16:11)
[2022-02-07] MEDS: HYDROcodone-ACET 5/325MG TAB PO PRN ×4 (02:28→19:44)
[2022-02-07] MEDS: SIMETHICONE 80 MG CHEWABLE TABLET PO SCH ×4 (05:04→22:00)
[2022-02-07] MEDS: ceFAZolin 1GM/50ML 50 ML IV SCH ×3 (06:45→23:05)
[2022-02-07] MEDS: FERROUS SULFATE 325mg EC TAB PO SCH ×3 (08:20→18:09)
[2022-02-07] MEDS: DOCUSATE CALCIUM 240 MG CAP PO SCH (09:35)
[2022-02-07] MEDS ORDERED: IOHEXOL 350 MG/ML 100ML IJ ONE (12:12)
[2022-02-07] MEDS: IBUPROFEN 800 MG TAB PO PRN (22:16)
[2022-02-07 22:55] LABS: Hematocrit 29.1 % (36.0-46.0); Hemoglobin 9.6 g/dL (12.2-16.2)
[2022-02-08] MEDS: metroNIDAZOLE 500MG/100ML 100 ML IV SCH ×4 (00:24→16:01)
[2022-02-08] MEDS: DOCUSATE SOD 100 MG CAP PO SCH ×2 (00:30→09:55)
[2022-02-08 03:00] VITALS: BP 140/84
[2022-02-08] MEDS: SIMETHICONE 80 MG CHEWABLE TABLET PO SCH ×2 (06:00→12:00)
[2022-02-08 07:00] VITALS: BP 139/72
[2022-02-08] MEDS: ceFAZolin 1GM/50ML 50 ML IV SCH ×3 (07:35→22:49)
[2022-02-08] MEDS: IBUPROFEN 800 MG TAB PO PRN (07:36)
[2022-02-08] MEDS: FERROUS SULFATE 325mg EC TAB PO SCH ×3 (09:11→19:30)
[2022-02-08] MEDS: HYDROcodone-ACET 5/325MG TAB PO PRN ×2 (09:20→22:56)
[2022-02-08] MEDS: DOCUSATE CALCIUM 240 MG CAP PO SCH ×2 (09:55→10:00)
[2022-02-08 11:00] VITALS: BP 125/73
[2022-02-08 15:00] VITALS: BP 144/80
[2022-02-08 19:00] VITALS: BP 144/83
[2022-02-08 23:00] VITALS: BP 142/88
[2022-02-09] MEDS: metroNIDAZOLE 500MG/100ML 100 ML IV SCH ×2 (00:13→08:00)
[2022-02-09 02:53] VITALS: BP 144/85
[2022-02-09] MEDS: ceFAZolin 1GM/50ML 50 ML IV SCH (07:00)
[2022-02-09] MEDS: HYDROcodone-ACET 5/325MG TAB PO PRN (08:07)
== END 2022-02-09 09:18 | disposition home or self-care (01) | DRG 542 ==
LOC: LDRP 17:45 → OBSVTOIN 21:12 → LDRP 22:45 → ICU WEST 02-05 15:00 → LDRP 02-06 08:28
PROVIDERS: ADMIT Obstetrics & Gynecology Obstetrics; ATTEND Obstetrics & Gynecology Obstetrics
PROC: 0UT90ZL Resection of Uterus, Supracervical, Open Approach (ICD-10-PCS; 2022-02-05)
PROC: 10907ZC Drainage of Amniotic Fluid, Therapeutic from Products of Conception, Via Natural or Artificial Opening (ICD-10-PCS; 2022-02-05)
PROC: 3E033VJ Introduction of Other Hormone into Peripheral Vein, Percutaneous Approach (ICD-10-PCS; 2022-02-05)
PROC: 3E0P7VZ Introduction of Hormone into Female Reproductive, Via Natural or Artificial Opening (ICD-10-PCS; 2022-02-05)
PROC: 3E0DXGC Introduction of Other Therapeutic Substance into Mouth and Pharynx, External Approach (ICD-10-PCS; 2022-02-05)
PROC: 30233P1 Transfusion of Nonautologous Frozen Red Cells into Peripheral Vein, Percutaneous Approach (ICD-10-PCS; 2022-02-05)
PROC: 30233N1 Transfusion of Nonautologous Red Blood Cells into Peripheral Vein, Percutaneous Approach (ICD-10-PCS; 2022-02-05)
PROC: 10E0XZZ Delivery of Products of Conception, External Approach (ICD-10-PCS; principal; 2022-02-05 08:35)
DX: O13.4 Gestational [pregnancy-induced] hypertension without significant proteinuria, complicating childbirth (principal); Z37.0 Single live birth; O72.1 Other immediate postpartum hemorrhage; O99.892 Other specified diseases and conditions complicating childbirth; J45.909 Unspecified asthma, uncomplicated; O43.213 Placenta accreta, third trimester; O14.94 Unspecified pre-eclampsia, complicating childbirth; O62.3 Precipitate labor; O99.214 Obesity complicating childbirth; R00.0 Tachycardia, unspecified; O99.52 Diseases of the respiratory system complicating childbirth; O99.02 Anemia complicating childbirth; Z3A.37 37 weeks gestation of pregnancy; Z88.5 Allergy status to narcotic agent; Z20.822 Contact with and (suspected) exposure to COVID-19
CPT/HCPCS: 36415; 36430; 59025; 59409; 74018; 74178; 76805; 80053; 80307; 81001; 81002; 82570; 84112; 84156; 84550; 85014; 85018; 85025; 85384; 85610; 85730; 86592; 86703; 86762; 86850; 86900; 86901; 86920; 87081; 87340; 94760; 94762; 96360; 96361; 96365; 96366; 96374; G0378; J0690; J1100; J2001; J2250; J2405; J2540; J2590; J3490; J7060